=== PATIENT | female | born 1965 | race Caucasian/White ===

== ENCOUNTER 2018-06-03 11:43 | Emergency (ER) | payer OTHER, MEDICARE ==
[~2018-06-03] VITALS: Ht 165.1 cm; Wt 95.3 kg
[~2018-06-03 11:43] MED LIST: ABILIFY5 MG PO; AMBIEN10 MG PO; ASPIR 8181 MG PO; BENADRYL25 M1 PO; BENICAR20 MG PO; NEXIUM40 MG PO; XARELTO20 MG PO; ZOLOFT100 MG PO
--- NOTE | 2018-06-03 17:28 | NUR ---
No answer at this time
--- NOTE | 2018-06-03 17:49 | NUR ---
No answer at this time from lobby
== END 2018-06-03 18:00 | disposition left against medical advice (07) ==
LOC: ER 11:43
DX: R51 Headache (principal)